=== PATIENT | female | born 2000 | race American Indian/Alaskan Native ===

== ENCOUNTER 2024-05-16 06:34 | Emergency (ER) | payer MEDICAID, SELFPAY ==
[2024-05-16 06:34] VITALS: BMI 32.5
--- NOTE | 2024-05-16 07:01 | XR_ITS ---
Examination: Toes, left foot 3 views first digit Technique: Toes AP oblique lateral 3 views first digit Date and time of exam: May 16, 2024 0716 hrs. Indications: Choking injury to the foot today, foot pain first digit pain. Findings: No acute fracture No dislocation No foreign body Impression: No acute fracture
[2024-05-16 07:02] VITALS: BP 125/89; PULSE 98; RESP 18; TEMP 36.7; O2SAT 97
--- NOTE | 2024-05-16 07:49 | EDNOTE_ITS ---
Lower Extremity Injury RME/HPI General Chief Complaint: Ankle/Foot Injury Stated Complaint: LEFT FOOT PAIN AFTER SLIPPING LAST NIGHT Time Seen by Provider: 05/16/24 06:49 Source: patient Arrival date/time: 05/16/24 06:34 This is a 23-year-old female who presented to the emergency department with complaints of left great toe pain status post slipping last night. Reports the pain starts in her left great toe and has pain every time she takes a step. Patient did not attempt any interventions or take any OTC medications prior to ED visit. Patient denies any other associated symptoms or aggravating factors. No modifying factors, no radiation, no migration. Mode of arrival: ambulatory Limitations: no limitations Related Data Previous Rx's ?Medication ?Instructions ?Recorded acetaminophen 325 mg tablet (Pain 650 mg (2 x 325 mg) PO QID PRN 05/16/24 Reliever (acetaminophen)) fever or pain #20 tabs Allergies Allergy/AdvReac Type Severity Reaction Status Date / Time No Known Allergies Allergy Verified 05/16/24 06:36 Review of Systems Review of Systems Systems Reviewed: All systems reviewed, normal except as documented Narrative Review of Systems: Gen: No fever, no chills, no weight loss EYES: No discharge, no visual changes, no pain HEENT: No ear pain, no congestion, no sore throat PULM: No shortness of breath, no cough, no congestion CV: No chest pain, no dyspnea on exertion, no palpitations GI: No nausea, no vomiting, no diarrhea, no pain, no constipation : No frequency, no urgency,? no dysuria Musc/skel: left foot pain, no back pain Skin: No rash? ED Exam General Limitations: Present no limitations General appearance: Present alert and in no apparent distress Head Head exam: Present atraumatic Eye Eye exam: Present normal appearance, PERRL and EOMI ENT ENT exam: Present normal exam, normal oropharynx and mucous membranes moist Neck Neck exam: Present normal inspection, full ROM and trachea midline Chest Chest inspection: Present normal inspection and symmetric chest wall rise Respiratory Respiratory exam: Present normal lung sounds bilaterally Cardiovascular Cardiovascular exam: Present regular rate, normal rhythm and normal heart sounds Abdominal Exam Abdominal exam: Present soft and normal bowel sounds Extremities Exam Extremities exam: Present normal inspection and full ROM Back Exam Back exam: Present normal inspection and full ROM Neurological Exam Neurological exam: Present alert, oriented X3 and CN II-XII intact Psychiatric Psychiatric exam: Present normal affect and normal mood Skin Skin exam: Present warm, dry, intact and normal color Course Quality Measures none Orders Category Date Time Status Crutches .NOW Care 05/16/24 07:55 Completed Miscellaneous Nursing Order NOW Care 05/16/24 07:55 Completed XR toe LT min 2V Stat Exams 05/16/24 07:01 Completed Vital Signs Vital signs: Vital Signs Temperature 98.1 F 05/16/24 07:02 Pulse Rate 98 05/16/24 07:02 Respiratory Rate 18 05/16/24 07:02 Blood Pressure 125/89 H 05/16/24 07:02 Pulse Oximetry (%) 97 05/16/24 07:02 Oxygen Delivery Method Room Air 05/16/24 07:02 Extremity Injury, Lower Patient data External records reviewed:: [facility] previous records Clinical information provided by:: patient Social determinants that could affect healthcare access:: none Patient has the following chronic illnesses:: no How is presenting disease/condition affected by chronic disease/condition?: no chronic disease Evaluation data The following diagnostics were reviewed and interpreted by me:: radiology exam(s) Lab and/or radiology exams considered but not ordered:: no Interpretation Summary: Examination: Toes, left foot 3 views first digit Technique: Toes AP oblique lateral 3 views first digit Date and time of exam: May 16, 2024 0716 hrs. Indications: Choking injury to the foot today, foot pain first digit pain. Findings: No acute fracture No dislocation No foreign body Impression: No acute fracture Medications / Prescriptions Medications or Prescriptions considered but not ordered:: no Medication administrations:: no Consultations Consultation(s) initiated? (list below): No Diagnosis Extremity Injury, Lower Differential Diagnosis: ankle sprain and strain, puncture wound of foot, fracture of toe and ankle fracture Most likely diagnosis given after review of the tests above:: Foot sprain Admission Indicated Admission indicated?: not indicated Admission Request Was there a request for admission?: No Disposition Plan Disposition Plan: Discharge Discharge Attestation Discharge Attestation: The patient and all family members were given an opportunity to ask questions and understood the discharge instructions. Discharge instructions specifically effects, indications for sooner follow up or return to the emergency department, and the expected course of current diagnosis. Patient condition: Stable Discharge Plan Plan Patient Disposition: HOME (Self Care) Patient condition on transfer: Stable Prescriptions/Referrals Prescriptions/Med Rec: New acetaminophen [Pain Reliever (acetaminophen)] 325 mg tablet 650 mg PO QID PRN (Reason: fever or pain) Qty: 20 0RF Referrals: Noelle Phillip PA-C ([facility]) [Primary Care Provider] - In 1 week Problem List Clinical Impression: Foot sprain Patient/Caregiver Discharge Instructions Discharge Activity: activity as tolerated Education Materials: ED Foot Sprain, ED Toe Sprain Additional Instructions: - Can use Otilio bandage. Please do not bear weight at least for couple days. Use crutches as directed. Take Tylenol as directed. Return to the emergency department if there is any worsening symptoms or change in condition. Print Language: Romansh Stand Alone Forms: Radha Award Info., Patient Portal Info Letter PA/ZAHRA Supervising Physician ANALI/ZAHRA Supervising Physician: Dr Valdivia
== END 2024-05-16 08:12 | disposition home or self-care (01) ==
PROVIDERS: Emergency Provider Emergency Medicine; PCP Nurse Practitioner Family
DX: S93.602A Unspecified sprain of left foot, initial encounter (principal); W18.40XA Slipping, tripping and stumbling without falling, unspecified, initial encounter
CPT/HCPCS: 73660; 99283